=== PATIENT | female | born 1980 | race Caucasian/White ===

== ENCOUNTER 2018-07-02 17:37 | Emergency (ER) | payer BC ==
[2018-07-02 17:54] VITALS: BP 116/68
[2018-07-02] MEDS ORDERED: Nitrofurantoin Macrocrystals* 50 MG CAP PO ONE (18:20)
--- NOTE | 2018-07-02 18:29 | UC ---
Back Pain HPI - HPI Summary HPI Summary: Patient has had right flank pain for the past few days, has had chills and felt feverish, is complaining of some burning with urination - History of Current Complaint Chief Complaint: UCGU Stated Complaint: LOW BACK PAIN Time Seen by Provider: 07/02/18 18:03 Hx Obtained From: Patient Hx Last Menstrual Period: 06/24/18 ?: No Onset/Duration: Sudden Onset, Lasting Days Timing: Constant Severity Initially: Mild Severity Currently: Moderate Pain Intensity: 4 Character: Dull, Aching Associated Signs And Symptoms: Positive: Negative - Allergies/Home Medications Allergies/Adverse Reactions: Allergies Allergy/AdvReac Type Severity Reaction Status Date / Time Penicillins Allergy Unknown Unknown Verified 07/02/18 17:54 Reaction Details Home Medications: Home Medications acetaZOLAMIDE TAB* [Diamox Tab*] 1,000 mg PO DAILY 07/02/18 [History Confirmed 07/02/18] PMH/Surg Hx/FS Hx/Imm Hx Previously Healthy: Yes Other Neurological History: intercranial hypertension - Surgical History Surgical History: None - Family History Known Family History: Positive: Hypertension - Social History Alcohol Use: Rare Substance Use Type: None Smoking Status (MU): Former Smoker Type: Cigarettes Review of Systems Constitutional: Negative Skin: Negative Eyes: Negative ENT: Negative Respiratory: Negative Cardiovascular: Negative Gastrointestinal: Negative Genitourinary: Dysuria Motor: Negative Neurovascular: Negative Musculoskeletal: Myalgia Neurological: Negative Psychological: Negative Is Patient Immunocompromised?: No All Other Systems Reviewed And Are Negative: Yes Physical Exam Triage Information Reviewed: Yes Appearance: Well-Appearing, Well-Nourished, Pain Distress Vital Signs: Initial Vital Signs Temp 97.0 F 07/02/18 17:49 Pulse 77 07/02/18 17:49 Resp 18 07/02/18 17:49 BP 116/68 07/02/18 17:49 Pulse Ox 100 07/02/18 17:49 Vital Signs Reviewed: Yes Eye Exam: Normal ENT Exam: Normal ENT: Positive: Pharyngeal erythema, TMs normal Dental Exam: Normal Neck exam: Normal Respiratory Exam: Normal Respiratory: Positive: Chest non-tender, Lungs clear, Normal breath sounds Cardiovascular Exam: Normal Cardiovascular: Positive: RRR, No Murmur, Pulses Normal Abdominal Exam: Normal Abdomen Description: Positive: Nontender, No Organomegaly, Soft, CVA Tenderness (R) - pos, CVA Tenderness (L) - neg Musculoskeletal Exam: Normal Neurological Exam: Normal Psychological Exam: Normal Skin Exam: Normal Back Pain Course/Dx - Course Course Of Treatment: hx obtained, exam performed ,meds reviewed, treated for UTI , talked with patient about the importance of follow up if flank pain persists. - Differential Dx/Diagnosis Differential Diagnosis/HQI/PQRI: Renal Colic, Sprain, Other - UTI REnal Stone, pylonephritis Provider Diagnoses: right flank pain. dysuria. chills Discharge - Sign-Out/Discharge Documenting (check all that apply): Patient Departure All imaging exams completed and their final reports reviewed: Yes - Discharge Plan Condition: Stable Disposition: HOME Prescriptions: Nitrofurantoin Macrocrystals* [Macrodantin 100 mg*] 100 mg PO BID #[id number] cap Patient Education Materials: Flank Pain (ED) Referrals: Debbie Jewell MD [Primary Care Provider] - Additional Instructions: 1. we are treating your symptoms with antibiotics 2. The urine culture will be availalbe in the next 2-3 days, we will call if your treatment needs to be changed. 3. If flank pain persists, follow up with your PCP or the ER. - Billing Disposition and Condition Condition: STABLE Disposition: Home
== END 2018-07-02 18:29 | disposition home or self-care (01) ==
LOC: UCCORT 17:37
DX: R10.9 Unspecified abdominal pain (principal); R30.0 Dysuria; R68.83 Chills (without fever); Z87.891 Personal history of nicotine dependence; Z88.0 Allergy status to penicillin
CPT/HCPCS: 81003; 87086; 99202; A9270-GY; G0463